=== PATIENT | male | born 1965 | race Caucasian/White ===

== ENCOUNTER 2023-10-20 11:13 | Outpatient (AMB) | payer OTHER, SELFPAY ==
--- NOTE | 2023-10-20 11:24 | MHC.OFFVIS ---
Intake Vital Signs 10/20/23 11:31 Height 5 ft 8 in Weight 204 lb BMI 31.0 BP 148/83 H Blood Pressure Location Lt brachial Position Sitting Pulse 92 Intake Visit Reasons: Colonoscopy screening Intake Note: Patient new consult for 1st pre Colonoscopy screening. Patient denies any GI issues. 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 Accompanied by: Self / Same As Patient Allergies No Known Allergies Allergy (Verified 10/20/23 11:29) HPI HPI Comments History of Present Illness Details A 58 y/o male referred for index screening colonoscopy- Bowels are normal Appetite is good No respiratory or cardiac issues PFSH Surgical History Hx of skin cancer, basal cell Hx of knee surgery Family History Father Dementia Prostate disorder Mother Hyperlipemia HTN (hypertension) Brother Cystic fibrosis Other Hx of skin cancer, basal cell Social History (Updated 10/20/23 @ 11:43 by Lexie Hair PA-C) Household Members: Family Household Members Other:: 2 kids Alcohol intake: current Alcohol intake frequency: a few times a week Patient Tobacco Use Status: Current everyday Tobacco user Tobacco use type: Cigar Current occupational status: employed Current occupation: construction Review of Systems Const All systems reviewed & are unremarkable except as noted in HPI and below Card Denies chest pain and Denies dyspnea Resp Denies dyspnea GI Denies abdominal pain, Denies hematochezia, Denies heartburn, Denies nausea, Denies vomiting and Reports other Physical Exam Vital Signs: Last Vital Signs Pulse 92 10/20/23 11:31 BP 148/83 H 10/20/23 11:31 BMI result Body Mass Index 31.0 Const General: cooperative, healthy appearing and comfortable Orientation/consciousness: patient oriented x3 Limitations: no limitations Resp Effort & Inspection: normal respiratory effort and able to speak in complete sentences Auscultation: clear to auscultation bilaterally, no rales, no rhonchi and no wheezes Cardio Rate: regular rate Rhythm: regular rhythm Heart sounds: S1 normal heart sound present and S2 normal heart sound present GI Palpation (GI): Soft to palpation and nontender Auscultation: normal bowel sounds Skin General skin exam: no rashes or lesions noted Neuro General: patient oriented x3 Extrem General: Yes full ROM Psych Appearance: grossly normal Mental Status: mental status grossly normal Speech and movement: Normal speech and movement present Affect: normal affect Attitude: cooperative Thought process: Normal thought process present Thought content: Normal thought content present Assessment & Plan Assessment & Plan (1) Encounter for screening colonoscopy: Code(s): Z12.11 - Encounter for screening for malignant neoplasm of colon Plan: index screening Plan Index screening colonoscopy MG prep Orders: Orders Colonoscopy - GI Use Only Today Z12.11 - Encounter for screening for malignant neoplasm of colon Medications: New bisacodyl (Dulcolax (bisacodyl)) Day before procedure @ 12 noon Take 4 tablets by mouth followed by large glass of water 20 mg (4 x 5 mg) PO ONCE PRN 4 tabs 0RF colonoscopy prep 1 day Z12.11 - Encounter for screening for malignant neoplasm of colon polyethylene glycol 3350 (Miralax) Take as directed by mouth the day before your procedure. 238 grams PO ONCE PRN 238 grams 0RF laxative effect 1 day Patient Instructions: Index screening colonoscopy MG prep- reviewed- lit given need escort- anesthesia- rare risks Call with concerns Coding Level of Care Code New Pt Level 3 (24870) Diagnoses Encounter for screening colonoscopy Z12.11 Time Spent (min) 30
[2023-10-20 11:31] VITALS: BP 148/83; PULSE 92; BMI 31.0
== END 2023-10-20 13:07 | disposition home or self-care (01) ==
PROVIDERS: Visit Provider Physician Assistant
DX: Z12.11 Encounter for screening for malignant neoplasm of colon (principal); Z01.818 Encounter for other preprocedural examination
CPT/HCPCS: 99203

== ENCOUNTER → 2023-10-20 11:13 | Outpatient (BNVA) | payer OTHER, SELFPAY | PROVIDERS: Visit Provider Physician Assistant ==

== ENCOUNTER 2024-06-07 11:00 | Day surgery (SDC) | payer OTHER, SELFPAY ==
[2024-06-03 13:55] VITALS: BMI 31.0
--- NOTE | 2024-06-07 11:39 | MHC.SHP ---
Pre-Procedural Eval Section A - 24 Hr Update-Section A only Date of Service: 06/07/24 The patient is an INPATIENT: No The patient has been examined within 24 hours of the surgical procedure. The History & Physical has been completed within 30 days and I have reviewed it.: No Section B - Complete if H&P > 30 days Chief Complaint: Colon cancer screening Relevant Family History (Specify if Yes): No Relevant Social History: Tobacco Use Present Medications: see Short Stay Collaborative assessment Medical History: No relevant PMH History of Previous Operations: Relevant previous surgery/procedure and date(s) (Hx of skin cancer, basal cell Hx of knee surgery) Allergies: Allergies Allergy/AdvReac Type Severity Reaction Status Date / Time No Known Allergies Allergy Verified 10/20/23 11:29 Review of Systems Sugical H&P ROS: Negative: Constitution, Cardiovascular, Respiratory and Gastrointestinal Exam Surgical H&P Exam: Normal: Heart, Normal: Lungs, Normal: Extremities and Normal: Abdomen Plan Diagnosis/Plan: Unchanged I have reviewed the history and physical and performed a pertinent physical examination on my patient. No changes have occurred unless specified. Time Spent With Patient Time: Total time managing care of this patient today ____ minutes.
[2024-06-07 12:20] VITALS: BP 147/85; PULSE 77; RESP 16; TEMP 36.6; O2SAT 95
--- NOTE | 2024-06-07 12:21 | HO.ANESPROP2 ---
PMFSH Active Problems Active Problems: All Active Problems Encounter for screening colonoscopy (Acute) Family History Family History Father Dementia Prostate disorder Mother Hyperlipemia HTN (hypertension) Brother Cystic fibrosis Other Hx of skin cancer, basal cell Family history of problems with anesthesia: No Surgical History Surgical History Hx of skin cancer, basal cell Hx of knee surgery History of Problems with Anesthesia: No Social History Social History (Updated 10/20/23 @ 11:43 by Lexie Hair PA-C) Household Members: Family Household Members Other:: 2 kids Alcohol intake: current Alcohol intake frequency: a few times a week Patient Tobacco Use Status: Current everyday Tobacco user Tobacco use type: Cigar Advance Directives: No Advance Directives Information Provided: Yes Current occupational status: employed Current occupation: [employer] Allergies Allergy/AdvReac Type Severity Reaction Status Date / Time No Known Allergies Allergy Verified 06/07/24 11:51 Home Medications ?Medication ?Instructions ?Recorded ?Confirmed ?Last Taken ?Type albuterol sulfate 90 mcg/actuation inhalation 10/17/23 Unknown History aerosol inhaler lisinopril 10 mg tablet 10 mg PO DAILY 10/17/23 06/07/24 Unknown History pravastatin 20 mg tablet 20 mg PO DAILY 10/17/23 06/07/24 Unknown History Exam Height,Weight and Vital Signs: Height 5 ft 8 in Weight 92.533 kg Airway Mallampati Class: II TM Dist: >3cm Neck ROM: Full Heart: rrr Lungs: cta Assessment and Plan Assessment Anesthesia Assessment: Anesthesia Plan Discussed and Chart Reviewed Final Anesthetic Review Family History of Problems with Anesthesia: No History of Problems with Anesthesia: No NPO: Yes ASA Class: II Final Preanesthetic Review: No Changes in Pt Med Stat, Meds/Allgs Chart Reviewed and Consent Obtained/Reviewed Patient Risk: Low Procedure Risk: Low Anesthetic Plan Anesthetic Plan: MAC: Disposition: Standard PACU
[2024-06-07 12:51] VITALS: BP 113/75; PULSE 64; RESP 16; TEMP 36.2; O2SAT 95
--- NOTE | 2024-06-07 12:53 | P.OPN-COLO_ITS ---
Colonoscopy Operative Note Operative Note Date of Service: 06/07/24 Narrative: COLONOSCOPY TILL CECUM WITH BIOPSIES Pre-op diagnosis: Colon cancer screening, (First colon). Post-op diagnosis:? cecal AVM, colon polyp, Diverticulosis, hemorrhoids Endoscopist:? Jh Enriquez MD Anesthesia:?MAC Consent: Indications for the procedure and potential complications of bleeding, perforation, reaction to medications and missed diagnosis were discussed with the patient and informed consent was obtained. Instrument: Olympus CF H 190 L variable stiffness adult colonoscope Monitoring: Vital signs and clinical assessment, intermittent blood pressure monitoring, continuous EKG monitoring, Pulse oximetry and Carbon Dioxide monitoring were done throughout the procedure. Please see anesthesia flowsheet. Colon withdrawl time was 13 minutes. Procedure: The patient was placed in the left lateral decubitis position and pre-procedure medications were administered. After a digital rectal examination of the ano-rectum, the video colonoscope was inserted into the rectum and advanced through the colon to the cecum. The colonoscope was slowly withdrawn in a retrograde panoramic fashion and the colon mucosa was carefully examined including a retroflexed view of the rectum. Findings and interventions are described below. Procedure Difficulty: without difficulty Findings: Terminal Ileum: Not evaluated Cecum: Normal Ascending Colon: Normal Transverse Colon: Normal Descending Colon: Normal Sigmoid Colon: A 3-4 mm sessile polyp - removed with a cold biopsy. Moderate diverticulosis Rectum: Normal Ano-rectum: Moderate internal hemorrhoids Colon preparation: Excellent after some irrigation. [place] Bowel Preparation Scale Right colon; 3 Transverse colon: 3 Left colon; 3 (0 = Unprepared colon segment with mucosa not seen due to solid stool that cannot be cleared. 1 = Portion of mucosa of the colon segment seen, but other areas of the colon segment not well seen due to staining, residual stool and/or opaque liquid. 2 = Minor amount of residual staining, small fragments of stool and/or opaque liquid, but mucosa of colon segment seen well. 3 = Entire mucosa of colon segment seen well with no residual staining, small fragments of stool or opaque liquid) Impression and Post Procedure Diagnosis: Colonoscopy Findings: One small polyp was removed Moderate diverticulosis seen in the sigmoid colon Moderate hemorrhoids on retroflexed exam. Plan: I will send a letter with biopsy results Repeat Colonoscopy in 5 years if polyps are adenomatous and 10 year if polyps are hyperplastic. Above findings were reviewed with the patient and relevant handouts were given and the discharge area. BIOPSIES SHOWED: Colon, sigmoid, polyp: No tissue present for evaluation. Letter sent advising repeat colon in 5 yrs (in case sigmoid polyp was adenomatous) Pt placed on colonoscopy recall list.
[2024-06-07 13:06] VITALS: BP 125/83; PULSE 64; RESP 20; TEMP 36.7; O2SAT 96
[2024-06-07 13:18] VITALS: BP 125/83; PULSE 64; RESP 20; TEMP 36.7; O2SAT 96
== END 2024-06-07 13:34 | disposition home or self-care (01) ==
PROVIDERS: Visit Provider Internal Medicine Gastroenterology
PROC: 0DJD8ZZ Inspection of Lower Intestinal Tract, Via Natural or Artificial Opening Endoscopic (ICD-10-PCS; CPT 45378; principal; 2024-06-07 12:30)
DX: Z12.11 Encounter for screening for malignant neoplasm of colon (principal); K63.5 Polyp of colon; K57.30 Diverticulosis of large intestine without perforation or abscess without bleeding; K64.8 Other hemorrhoids; K55.20 Angiodysplasia of colon without hemorrhage; Z85.828 Personal history of other malignant neoplasm of skin; Z98.890 Other specified postprocedural states; F17.290 Nicotine dependence, other tobacco product, uncomplicated; Z79.899 Other long term (current) drug therapy
CPT/HCPCS: 45380; 88300; 88305; J2003; J2704

== ENCOUNTER → 2024-06-07 11:00 | Outpatient (BNV) | payer OTHER, SELFPAY | PROVIDERS: Visit Provider Internal Medicine Gastroenterology | DX: Z12.11 Encounter for screening for malignant neoplasm of colon (principal); D12.5 Benign neoplasm of sigmoid colon; K57.30 Diverticulosis of large intestine without perforation or abscess without bleeding; K64.8 Other hemorrhoids | CPT/HCPCS: 45380 ==